=== PATIENT | male | born 1990 | race Native Hawaiian/Other Pacific Islander ===

== ENCOUNTER 2017-10-13 19:57 | Emergency (ER) | payer SELFPAY ==
[2017-10-13 20:18] VITALS: BP 120/77; PULSE 72; RESP 18; TEMP 97.9; O2SAT 100
[2017-10-13] MEDS ORDERED: Tdap Vaccine 0.5 ml Vial (10-64 yrs) IM ONE ×2 (20:28→20:54)
--- NOTE | 2017-10-13 20:29 | ED PDOC ---
Lower Extremity Pain/Injury Time Seen by Provider: 10/13/17 20:25 Chief Complaint (Nursing): Lower Extremity Problem/Injury Chief Complaint (Provider): Left ankle pain History Per: Patient History/Exam Limitations: no limitations Onset/Duration Of Symptoms: Hrs ([employer]) Current Symptoms Are (Timing): Still Present Additional Complaint(s): Mirza Oquendo is a 27 year old male, with no significant past medical history, who presents to the emergency department complaining of left ankle pain onset today. Patient reports he was running when he accidentally tripped and twisted his left ankle. Patient states he is not able to bear weight on it. He did not take any medications for pain [employer]. He denies any other injuries or other medical complaints. PMD: None provided. - Ankle/Foot Description Of Injury: Twisted Currently Unable To: Bear Weight Past Medical History Reviewed: Historical Data, Nursing Documentation, Vital Signs Vital Signs: Last Vital Signs Temp 97.9 F 10/13/17 20:15 Pulse 72 10/13/17 20:15 Resp 18 10/13/17 20:15 BP 120/77 10/13/17 20:15 Pulse Ox 100 10/13/17 20:15 - Medical History PMH: No Chronic Diseases - Surgical History Surgical History: No Surg Hx - Family History Family History: States: Unknown Family Hx - Social History Current smoker - smoking cessation education provided: No Alcohol: None Drugs: Denies - Home Medications Home Medications: Ambulatory Orders Medication Instructions Recorded Ibuprofen [Motrin] 600 mg PO Q8 PRN #21 tab 10/13/17 - Allergies Allergies/Adverse Reactions: Allergies Allergy/AdvReac Type Severity Reaction Status Date / Time No Known Allergies Allergy Verified 10/13/17 20:15 Review of Systems ROS Statement: Except As Marked, All Systems Reviewed And Found Negative Musculoskeletal: Positive for: Foot Pain (left ankle) Physical Exam - Reviewed Nursing Documentation Reviewed: Yes Vital Signs Reviewed: Yes - Physical Exam Appears: Positive for: Non-toxic Head Exam: Positive for: ATRAUMATIC, NORMOCEPHALIC Skin: Positive for: Normal Color, Warm, Dry Eye Exam: Positive for: Normal appearance, EOMI, PERRL Neck: Positive for: Painless ROM Respiratory: Negative for: Respiratory Distress Extremity: Positive for: Normal ROM (left ankle with pain), Swelling (to lateral malleolus and left foot. Normal distal pulses), Other (1cm superficial abrasion to dorsum of left foot.). Negative for: Tenderness (Left foot nontender), Deformity Neurologic/Psych: Positive for: Alert, Oriented. Negative for: Motor/Sensory Deficits - ECG O2 Sat by Pulse Oximetry: 100 (RA) Pulse Ox Interpretation: Normal Medical Decision Making Medical Decision Making: Time: 20:25 Initial Impression: left ankle pain Initial Plan: --Motrin tab 600 mg PO --Adacel 0.5 ml IM --Ankle left 3 views routine [RAD] --Foot left 3 views routine [RAD] --Reevaluation 21:00 -Foot and ankle x-ray are negative. Will splint and order crutches Scribe Attestation: Documented by Cesar Toth, acting as a scribe for Yohan Cuadra PA-C Provider Scribe Attestation: All medical record entries made by the Scribe were at my direction and personally dictated by me. I have reviewed the chart and agree that the record accurately reflects my personal performance of the history, physical exam, medical decision making, and the department course for this patient. I have also personally directed, reviewed, and agree with the discharge instructions and disposition. Disposition - Clinical Impression Clinical Impression: Ankle sprain and strain - Patient ED Disposition Is Patient to be Admitted: No - Disposition Referrals: Podiatry Clinic [Outside] Disposition: Routine/Home Disposition Time: 21:08 Condition: IMPROVED Prescriptions: Ibuprofen [Motrin] 600 mg PO Q8 PRN #21 tab PRN Reason: Pain, Moderate (4-7) Instructions: Ankle Sprain (DC) Forms: [facility] ED School/Work Excuse
--- NOTE | 2017-10-13 20:30 | ED PDOC ---
Lower Extremity Pain/Injury Time Seen by Provider: 10/13/17 20:28 Chief Complaint (Nursing): Lower Extremity Problem/Injury Chief Complaint (Provider): ankle injury History Per: Patient (27 y/o male here with left ankle injury today when he was running and tripped. Has difficulty bearing weight but is able to move ankle without pain. No prior ankle injury.) Past Medical History Reviewed: Historical Data, Nursing Documentation, Vital Signs Vital Signs: Last Vital Signs Temp 97.9 F 10/13/17 20:15 Pulse 72 10/13/17 20:15 Resp 18 10/13/17 20:15 BP 120/77 10/13/17 20:15 Pulse Ox 100 10/13/17 20:15 - Allergies Allergies/Adverse Reactions: Allergies Allergy/AdvReac Type Severity Reaction Status Date / Time No Known Allergies Allergy Verified 10/13/17 20:15 Review of Systems ROS Statement: Except As Marked, All Systems Reviewed And Found Negative Musculoskeletal: Positive for: Foot Pain, Other (ankle injury) Physical Exam - Reviewed Nursing Documentation Reviewed: Yes Vital Signs Reviewed: Yes - Physical Exam Appears: Positive for: Well, Non-toxic, No Acute Distress Head Exam: Positive for: ATRAUMATIC, NORMAL INSPECTION, NORMOCEPHALIC Skin: Positive for: Normal Color, Warm, DRY Eye Exam: Positive for: EOMI, Normal appearance, PERRL ENT: Positive for: Normal ENT Inspection Neck: Positive for: Normal, Painless ROM Cardiovascular/Chest: Positive for: Regular Rate, Rhythm Respiratory: Positive for: CNT, Normal Breath Sounds Gastrointestinal/Abdominal: Positive for: Normal Exam, Soft Back: Positive for: Normal Inspection Extremity: Positive for: Normal ROM, Tenderness, Swelling (left lateral malleoulus. ), Other ((+) swelling lateral left foot (+) 1 cm superficial laceration) Neurologic/Psych: Positive for: Alert, Oriented - ECG O2 Sat by Pulse Oximetry: 100 - Progress ED Course And Treament: TDAP 0.5 ML IM X 1 DOSE MOTRIN 600MG X 1 DOSE Disposition - Disposition
--- NOTE | 2017-10-14 07:17 | RAD ---
HISTORY: ankle injury COMPARISON: No prior FINDINGS: BONES: Normal. No fracture. JOINTS: Normal. No osteoarthritis. SOFT TISSUE: Lateral malleolar soft tissue swelling. OTHER FINDINGS: None . IMPRESSION: Lateral malleolar soft tissue swelling.
--- NOTE | 2017-10-14 07:30 | RAD ---
PROCEDURE: Left Foot Radiographs. HISTORY: injury COMPARISON: None. FINDINGS: BONES: Normal. No fracture. JOINTS: Normal. SOFT TISSUES: Normal. OTHER FINDINGS: None. IMPRESSION: Normal left foot radiographs.
== END 2017-10-13 21:46 | disposition home or self-care (01) ==
LOC: H.ER 19:57
DX: S93.402A Sprain of unspecified ligament of left ankle, initial encounter (principal); W19.XXXA Unspecified fall, initial encounter; Y92.89 Other specified places as the place of occurrence of the external cause